=== PATIENT | female | born 1975 | race Caucasian/White ===

== ENCOUNTER 2021-08-19 06:37 | Emergency (ER) | payer MEDICAID, OTHER, SELFPAY ==
[2021-08-19] MEDS ORDERED: Ketorolac Tromethamine 30 MG/ML VIAL ONE (08:02)
[2021-08-19] MEDS ORDERED: Ondansetron PF 4 MG/2 ML Vial ONE (08:02)
[2021-08-19 08:19] LABS: BHCG - Serum Negative (NEGATIVE); Pregs Control Bar Appear? YES (CONTROL BAR)
[2021-08-19] MEDS ORDERED: Sulfameth/Trimethoprim DS 800-160mg TAB ONE (10:57)
[2021-08-19] MEDS ORDERED: Cyclobenzaprine 10 MG TAB ONE (12:13)
== END 2021-08-19 12:27 | disposition home or self-care (01) ==
LOC: NAV ERS 06:37
DX: S32.019A Unspecified fracture of first lumbar vertebra, initial encounter for closed fracture (principal); S12.200A Unspecified displaced fracture of third cervical vertebra, initial encounter for closed fracture; L02.415 Cutaneous abscess of right lower limb; Z79.899 Other long term (current) drug therapy; V48.5XXA Car driver injured in noncollision transport accident in traffic accident, initial encounter
CPT/HCPCS: 72125; 72128; 72131; 84703; 96374; 96375; J1885; J2405